=== PATIENT | female | born 1945 | race Caucasian/White ===

== ENCOUNTER 2017-03-07 09:02 | Day surgery (SDC) | payer MEDICARE, OTHER ==
--- NOTE | ~2017-03-07 | EGD ---
EGD REPORT [facility] [address] [address] NAME: SHAMA HERNANDEZ : [birth year] STATUS : REG [facility]#: [id number] AGE: 71 ADM/REG DATE : 03/07/17 MR#: [id number] REPORT SERV DATE: 03/07/17 DICTATED BY: DARIAN REYES DATE: 03/07/17 REPORT STATUS : Draft TRANSCRIBED BY: [facility] DATE: 03/07/17 Endoscopy Center Patient Name: Shama Hernandez Date of : 1945 Attending MD: DARIAN REYES MD Procedure Date No Time: 03/07/2017 Procedure: Upper GI endoscopy Indications: Follow-up of acute gastric ulcer Referring MD: PIPER GUTIERREZ Medicines: as per anesthesia Complications: No immediate complications. Procedure: After obtaining informed consent, the endoscope was passed under direct vision. Throughout the procedure, the patient's blood pressure, pulse, and oxygen saturations were monitored continuously. The GIF [id number] was introduced through the mouth, and advanced to the third part of duodenum. The upper GI endoscopy was accomplished without difficulty. The patient tolerated the procedure. Findings: The examined esophagus was normal. Localized minimal inflammation characterized by erythema was found in the gastric antrum. A few sessile polyps were found in the gastric body. The cardia and gastric fundus were normal on retroflexion. The examined duodenum was normal. Impression: - Normal esophagus. - Gastritis. - A few gastric polyps. - Normal examined duodenum. Recommendation: - Continue present medications. Procedure Code(s): --- Professional --- 02116, Esophagogastroduodenoscopy, flexible, transoral; diagnostic, including collection of specimen(s) by brushing or washing, when performed (separate procedure) Diagnosis Code(s): --- Professional --- K29.70, Gastritis, unspecified, without bleeding K31.7, Polyp of stomach and duodenum K25.3, Acute gastric ulcer without hemorrhage or perforation EGD REPORT [facility] [address] [place] [address] NAME: SHAMA HERNANDEZ : [birth year] STATUS : REG [facility]#: [id number] AGE: 71 ADM/REG DATE : 03/07/17 MR#: [id number] REPORT SERV DATE: 03/07/17 DICTATED BY: DARIAN REYES. DATE: 03/07/17 REPORT STATUS : Draft TRANSCRIBED BY: [employer] DATE: 03/07/17 CPT copyright 2013 [employer]. All rights reserved. The codes documented in this report are preliminary and upon community chest officer review may be revised to meet current compliance requirements. DARIAN REYES MD 03/07/2017 11:46 AM This report has been signed electronically. Number of Addenda: 0 Note Initiated On: 03/07/2017 11:31 AM Scope Withdrawal Time 0 hours 0 minutes 0 seconds [address] [facility] [place] [address]
[~2017-03-07 09:02] MED LIST: ASAB PO; DCN100 PO; MOBIC15 MG PO; PRILO PO; PRIN5 PO; SYN075 PO; TRAZ50 PO; XALAT OPH
[2017-07-07] MEDS ORDERED: COUMADIN4 MG PO (11:52)
[2017-07-07] MEDS ORDERED: NORCO1 TA2 PO (11:53)
[2017-07-07] MEDS ORDERED: ZOFRAN4 PO (11:53)
== END 2017-03-07 23:59 | disposition home or self-care (01) ==
LOC: DMU 09:02
PROVIDERS: Internal Medicine Gastroenterology
PROC: 0DJ08ZZ Inspection of Upper Intestinal Tract, Via Natural or Artificial Opening Endoscopic (ICD-10-PCS; principal; 2017-03-07 11:00)
DX: K29.70 Gastritis, unspecified, without bleeding (principal); K31.7 Polyp of stomach and duodenum; K31.9 Disease of stomach and duodenum, unspecified; I10 Essential (primary) hypertension; M19.90 Unspecified osteoarthritis, unspecified site; E03.9 Hypothyroidism, unspecified; Z88.2 Allergy status to sulfonamides; Z90.710 Acquired absence of both cervix and uterus; Z98.890 Other specified postprocedural states